=== PATIENT | female | born 1990 | race Caucasian/White ===

== ENCOUNTER 2017-04-06 12:01 | Emergency (ER) | payer MEDICAID ==
[~2017-04-06] VITALS: Ht 172.7 cm; Wt 73.0 kg
[~2017-04-06 12:01] MED LIST: FIORIC PO; GABA300 PO; IBUP800T23 PO; ULTR50TA PO
[2017-04-06 12:02] VITALS: BP 177/93; PULSE 54; RESP 16; TEMP 98.8; O2SAT 100
--- NOTE | 2017-04-06 12:18 | PD ---
HPI . dental pain for years and left ear pain Chief Complaint: Oral / Dental Pain or Problem Time Seen by Provider: 12:17 Travel History International Travel<30 days: No Contact w/Intl Traveler<30days: No Traveled to known affect area: No History of Present Illness HPI 27-year-old female here with complaints of dental pain. Patient tells me that she has had dental pain for years. She says every year she experiences dental pain, but now is causing pain in her left ear. She denies any fever or chills. She denies any facial swelling. She has some issues with her insurance and can't get in with the dentist until next week. She's been taking ibuprofen 800 mg at home and was hoping that we can give her some stronger pain medication. PFSH Past Medical History Asthma: No Autoimmune Disease: No Cancer: No Cardiovascular Problems: No Chemotherapy: No Diabetes: No Diminished Hearing: No Endocrine: No Gastrointestinal Disorders: No Genitourinary: No Hepatitis: No Hiatal Hernia: No Immune Disorder: No Musculoskeletal: No Neurologic: No Psychiatric: No Reproductive: No Respiratory: No Migraines: Yes Radiation Therapy: No Thyroid Disease: No : 5 Para: 3 Miscarriage: 1 : 1 Tubal Ligation: Yes Past Surgical History Section: Yes Gynecologic Surgery: Yes (c section ) Social History Alcohol Use: Yes (OCC) Tobacco Use: Yes (About 1/2 ppd) Substance Use: No Allergies-Medications (Allergen,Severity, Reaction): Coded Allergies: *MDRO Multi-Drug Resistant Organism (Verified Allergy, Unknown, 08/05/15) MRSA Reported Meds & Prescriptions Reported Meds & Active Scripts Active Ibuprofen 800 Mg Tab 800 Mg PO TID Fioricet Tab (Acetaminophen/Butalbital/Caffeine) 1 Tab Tab 1 Tab PO Q8 PRN dispense Fioricet 50mg/300mg/40mg tabs. Max 3 tabs per day. Ultram (Tramadol HCl) 50 Mg Tab 50 Mg PO Q8 PRN #50 to last one month; May fill 08/14/15 Ibuprofen 800 Mg Tab 800 Mg PO TID PRN Take with food Neurontin (Gabapentin) 300 Mg Cap 300 Mg PO TID Review of Systems General / Constitutional: No: Fever Eyes: No: Visual changes HENT: Positive: Dental Difficulties, Earache, No: Headaches Cardiovascular: No: Chest Pain or Discomfort Respiratory: No: Shortness of Breath Gastrointestinal: No: Abdominal Pain Genitourinary: No: Dysuria Musculoskeletal: No: Pain Skin: No Rash Neurologic: No: Weakness Psychiatric: No: Depression Endocrine: No: Polydipsia Hematologic/Lymphatic: No: Easy Bruising Physical Exam Narrative GENERAL: AAO x 3, no acute distress, Well-nourished, well-developed patient. SKIN: Warm and dry. No visible rashes or bruising. HEAD: Normocephalic and atraumatic. EYES: No scleral icterus. No injection or drainage. ENT: No nasal drainage noted. Mucous membranes pink. Airway patent. Multiple dental caries, too numerous to count. No overt fluid collection or oral abscess. No facial swelling. TMs normal bilaterally, mild cerumen buildup in both ears. NECK: Supple, trachea midline. No JVD. No lymphadenopathy CARDIOVASCULAR: Regular rate and rhythm without murmurs, gallops, or rubs. RESPIRATORY: Breath sounds equal bilaterally. No accessory muscle use. No rhonchi or rales. GASTROINTESTINAL: Visual inspection normal EXTREMITIES: No cyanosis or edema. BACK: Nontender without obvious deformity. No CVA tenderness. PSYCH: AAO x 3, normal affect. Data Data Last Documented VS Vital Signs Date Time Temp Pulse Resp B/P Pulse Ox O2 Delivery O2 Flow Rate FiO2 04/06/17 12:02 98.8 54 16 177/93 100 Room Air Orders Tramadol (Ultram) (04/06/17 12:30) MDM Medical Decision Making Medical Screen Exam Complete: Yes Emergency Medical Condition: Yes Medical Record Reviewed: Yes Differential Diagnosis Dentalgia, dental caries, less likely oral abscess Narrative Course This is a 27-year-old female presenting with acute on chronic dental pain. An examination has been done and I do not see any overt evidence of cellulitis or oral abscess. She has multiple teeth that will need to be extracted. I've recommended follow-up with a dentist as soon as possible. I order tramadol for her in the emergency department. I've explained to her that unfortunately I cannot prescribe her any narcotic pain medication. I will provide her with ibuprofen 800 mg. Patient verbalized understanding of instructions and questions were answered. I advised them if their condition worsens, please return to the nearest emergency room for further care. Diagnosis Primary Impression: Dentalgia Additional Impression: Need for dental care Patient Instructions: General Instructions Additional Instructions: Please see a dentist as soon as possible. Med/Other Pt SpecificInfo: Prescription(s) given Scripts Ibuprofen 800 Mg Sff048 Mg PO TID #21 TAB Prov:Shai Bocanegra MD 04/06/17 Disposition: 01 DISCHARGE HOME Condition: Stable Marisa Gil April 06, 2017 12:17
[2017-04-06] MEDS ORDERED: IBUP800T23 PO (12:22)
[2017-04-06] MEDS ORDERED: traMADol HCL 50 MG TAB PO ONE (12:30)
== END 2017-04-06 13:23 | disposition home or self-care (01) ==
LOC: NEPK 12:01
DX: K08.89 Other specified disorders of teeth and supporting structures (principal); F17.200 Nicotine dependence, unspecified, uncomplicated
CPT/HCPCS: 99283